=== PATIENT | female | born 1950 | race Caucasian/White ===

== ENCOUNTER → 2016-08-22 | Outpatient (REF) | payer MEDICARE | LOC: M SFHCWAGY 15:20 | PROVIDERS: ATTEND Nurse Practitioner Women's Health | DX: Z12.4 Encounter for screening for malignant neoplasm of cervix (principal) ==

== ENCOUNTER → 2016-08-22 | Outpatient (CLI) | payer MEDICARE ==
--- NOTE | 2016-08-22 16:15 | REPMRS ---
Patient History The patient states she had a clinical breast exam in 08/2016. Patient is postmenopausal. Family history of ovarian cancer in sister at age 71, breast cancer in paternal aunt at age 45, colorectal cancer in brother at age 71, and breast cancer in niece under age 50. Benign stereotatic loc for ea lesion of the left breast, June 14, 2015. Digital Woman Screen Mammo: August 22, 2016 - Exam #: [id number] Bilateral CC and MLO view(s) were taken. Technologist: Nancy Gallegos Technologist Prior study comparison: April 21, 2015, digital mammo diagnostic bilateral, performed at [facility]. December 10, 2013, digital woman screen mammo performed at [facility]. FINDINGS: There are scattered fibroglandular densities. There has been no change in the appearance of the mammogram from the prior studies. There is a needle biopsy marker clip in the left breast. There is a mild amount of scattered fibroglandular density which is fairly symmetric. There is no interval development of dominant mass, architectural distortion, or clustered microcalcification suggestive of malignancy. ASSESSMENT: BI-RADS/ACR category 2 mammogram. Benign finding(s). Recommendation Routine screening mammogram in 1 year (for women over age 40). This mammogram was interpreted with the aid of an FDA-approved computer-aided dectection system. Electronically Signed By: Joel Alcantara MD 08/22/16 [id number]
== END ==
LOC: M WHC 15:01
PROVIDERS: ATTEND Nurse Practitioner Women's Health
DX: Z12.31 Encounter for screening mammogram for malignant neoplasm of breast (principal); Z78.0 Asymptomatic menopausal state; Z12.12 Encounter for screening for malignant neoplasm of rectum; Z80.41 Family history of malignant neoplasm of ovary; Z92.89 Personal history of other medical treatment
CPT/HCPCS: 82270; G0101; G0123; G0202

== ENCOUNTER → 2016-11-27 | Outpatient (REF) | payer MEDICARE | LOC: M SFHCCLAY 12:59 | PROVIDERS: ATTEND Nurse Practitioner | DX: E03.9 Hypothyroidism, unspecified (principal) ==

== ENCOUNTER 2017-04-20 06:56 | Day surgery (SDC) | payer MEDICARE ==
[~2017-04-20] VITALS: Ht 157.5 cm; Wt 59.4 kg
[~2017-04-20 06:56] MED LIST: CALC600T57 PO; GLUC500C5 PO; LEVO75TA4 PO; MULT1CHW39 PO; VITA200C10 PO
[2017-04-20] MEDS ORDERED: NS 1,000 ML IV ONE (07:00)
--- NOTE | 2017-04-20 08:00 | ROOR ---
Patient Name: Cynthia Schwarz Procedure Date: 04/20/2017 7:39 AM Date of : 1950 Age: 67 Room: [facility] Gender: Female Note Status: Finalized Procedure: Colonoscopy Indications: High risk colon cancer surveillance: Personal history of colonic polyps, Family history of colon cancer in a first-degree relative Providers: Jeremiah LANDIS MD Referring MD: Eusebio Donahue MD Requesting Provider: Medicines: Monitored Anesthesia Care Complications: No immediate complications. Procedure: Pre-Anesthesia Assessment: - The heart rate, respiratory rate, oxygen saturations, blood pressure, adequacy of pulmonary ventilation, and response to care were monitored throughout the procedure. The Colonoscope was introduced through the anus and advanced to the cecum, identified by appendiceal orifice and ileocecal valve. The colonoscopy was performed without difficulty. The patient tolerated the procedure well. The quality of the bowel preparation was good. Findings: The perianal and digital rectal examinations were normal. Multiple medium-mouthed diverticula were found in the sigmoid colon and descending colon. There was narrowing of the colon in association with the diverticular opening. There was evidence of diverticular spasm. Three sessile polyps were found in the sigmoid colon and ascending colon. The polyps were diminutive in size. These polyps were removed with a cold snare. Resection and retrieval were complete. The exam was otherwise without abnormality. Impression: - Moderate diverticulosis in the sigmoid colon and in the descending colon. - Three diminutive polyps in the sigmoid colon and in the ascending colon, removed with a cold snare. Resected and retrieved. - The examination was otherwise normal. Recommendation: - Telephone endoscopist for pathology results in 2 weeks. - If the pathology report reveals adenomatous tissue, then repeat the colonoscopy for surveillance in 3 years. - If the pathology report indicates hyperplastic polyp, then repeat colonoscopy for surveillance in 5 years. Jeremiah Landis MD Jeremiah LANDIS MD 04/20/2017 8:00:40 AM This report has been signed electronically. Number of Addenda: 0 Note Initiated On: 04/20/2017 7:39 AM Estimated Blood Loss: Estimated blood loss: none.
[2017-04-20] MEDS ORDERED: PROPOFOL 200 MG/20 ML VIAL As Ordered ONE (08:09)
[2017-04-20 08:25] VITALS: BP 131/72
== END 2017-04-20 08:28 | disposition home or self-care (01) ==
LOC: M OPP 06:56
PROVIDERS: ATTEND Internal Medicine Gastroenterology
DX: Z12.11 Encounter for screening for malignant neoplasm of colon (principal); Z86.010 Personal history of colon polyps; Z80.0 Family history of malignant neoplasm of digestive organs; D12.5 Benign neoplasm of sigmoid colon; D12.2 Benign neoplasm of ascending colon; K57.30 Diverticulosis of large intestine without perforation or abscess without bleeding; E03.9 Hypothyroidism, unspecified; M19.90 Unspecified osteoarthritis, unspecified site; Z88.8 Allergy status to other drugs, medicaments and biological substances; Z91.010 Allergy to peanuts; Z88.0 Allergy status to penicillin; Z79.899 Other long term (current) drug therapy; Z80.3 Family history of malignant neoplasm of breast; Z80.1 Family history of malignant neoplasm of trachea, bronchus and lung; Z80.41 Family history of malignant neoplasm of ovary; Z88.2 Allergy status to sulfonamides

== ENCOUNTER → 2017-08-23 | Outpatient (CLI) | payer MEDICARE | LOC: M WHC 14:45 | DX: Z12.31 Encounter for screening mammogram for malignant neoplasm of breast (principal); Z01.419 Encounter for gynecological examination (general) (routine) without abnormal findings (principal) | CPT/HCPCS: 77067; G0123 ==

== ENCOUNTER → 2017-08-23 | Outpatient (REF) | payer MEDICARE | LOC: M SFHCWAGY 15:30 | DX: Z12.4 Encounter for screening for malignant neoplasm of cervix (principal); N95.2 Postmenopausal atrophic vaginitis | CPT/HCPCS: G0123 ==

== ENCOUNTER → 2017-09-24 | Outpatient (REF) | payer MEDICARE | LOC: M SFHCWAGY 09-25 11:09 | DX: N89.8 Other specified noninflammatory disorders of vagina (principal) | CPT/HCPCS: 87070 ==

== ENCOUNTER → 2018-08-27 | Outpatient (CLI) | payer MEDICARE ==
[~2018-08-27] MED LIST changes: -MULT1CHW39 PO; +MULT200T7 PO
--- NOTE | 2018-08-27 15:29 | REPMRS ---
Patient History The patient states she had a clinical breast exam in 08/2018. Patient is postmenopausal. Family history of colorectal cancer at age 71 in brother, breast cancer at age 45 in paternal aunt, breast cancer under age 50 in niece, ovarian cancer at age 71 in sister, breast cancer at age 70 in paternal aunt. Benign stereotatic loc for ea lesion of the left breast, June 14, 2015. Taking estrogen for 1 month. 3D TOMOSYNTHESIS WAS PERFORMED. Digital Woman Screen Mammo: August 27, 2018 - Exam #: [id number] Bilateral CC and MLO view(s) were taken. Technologist: Mikayla Hall, Technologist Prior study comparison: August 23, 2017, digital woman screen mammo performed at [facility]. August 22, 2016, digital woman screen mammo performed at [facility]. FINDINGS: The breast tissue is heterogeneously dense. This may lower the sensitivity of mammography. There has been no change in the appearance of the mammogram from the prior studies. There is a moderate amount of residual fibroglandular tissue which is fairly symmetric. There is no interval development of dominant mass, areas of architectural distortion, or clustered microcalcification typical of malignancy. Assessment: BI-RADS/ACR category 1 mammogram. Negative Mammogram. Recommendation Routine screening mammogram in 1 year (for women over age 40). This mammogram was interpreted with the aid of an FDA-approved computer-aided dectection system. Electronically Signed By: Isrrael Medrano MD 08/27/18 [id number]
== END ==
LOC: M WHC 13:17
PROVIDERS: ATTEND Nurse Practitioner Women's Health
DX: Z01.419 Encounter for gynecological examination (general) (routine) without abnormal findings (principal); Z12.31 Encounter for screening mammogram for malignant neoplasm of breast; Z78.0 Asymptomatic menopausal state; Z92.23 Personal history of estrogen therapy; Z86.018 Personal history of other benign neoplasm; Z80.41 Family history of malignant neoplasm of ovary
CPT/HCPCS: 77063; 77067; G0101

== ENCOUNTER → 2018-10-28 | Outpatient (CLI) | payer MEDICARE ==
--- NOTE | 2018-10-29 10:14 | DEXA ---
AP SPINE L1 - L4 0.953 -2.0 -0.3 LT FEMUR TOTAL 0.842 -1.3 0.2 LT NECK 0.750 -2.1 -0.4 RT FEMUR TOTAL 0.840 -1.3 0.2 RT NECK 0.738 -2.2 -0.4 TOTAL BODY TOTAL OTHER COMMENTS: There is low bone density of the spine and hips. The density of the spine has decreased 2.5% since 12/18/2013. The density of the left hip has decreased 1.6% since 12/18/2013. The density of the right hip has decreased 0.2% since 12/18/2013. FOLLOW-UP: Recommendation for the next bone density exam: 2 years. NENITA
== END ==
LOC: M WHC 09:44
PROVIDERS: ATTEND Nurse Practitioner Family
DX: M81.0 Age-related osteoporosis without current pathological fracture (principal)
CPT/HCPCS: 77080; G0463

== ENCOUNTER → 2019-10-21 | Outpatient (CLI) | payer MEDICARE ==
--- NOTE | 2019-10-21 16:19 | REPMRS ---
Patient History The patient states she had a clinical breast exam in October 2019. Family history of colorectal cancer at age 71 in brother, breast cancer at age 45 in paternal aunt, breast cancer under age 50 in niece, ovarian cancer at age 71 in sister, breast cancer at age 70 in paternal aunt. Benign stereotatic loc for ea lesion of the left breast, June 14, 2015. Taking estrogen for 1 month. Digital Woman Screen Mammo: October 21, 2019 - Exam #: [id number] Bilateral CC and MLO view(s) were taken. Technologist: Debbie Carnes, Technologist Prior study comparison: August 27, 2018, bilateral digital woman screen mammo performed at [facility]. August 23, 2017, digital woman screen mammo performed at [facility]. August 22, 2016, digital woman screen mammo performed at [facility]. FINDINGS: There are scattered fibroglandular densities. The Volpara volumetric breast density category is: B. There is a metallic marker clip again noted in the left breast. There is a moderate amount of residual fibroglandular tissue which is fairly symmetric. There is no interval development of dominant mass, architectural distortion, or grouped microcalcification typical of malignancy. There has been no change in the appearance of the mammogram from the prior studies. 3-D tomosynthesis shows no additional findings. Assessment: BI-RADS/ACR category 2 mammogram. Benign Findings. Recommendation Routine screening mammogram of both breasts in 1 year (for women over age 40). This patient's Lifetime Breast Cancer RIsk is estimated at 5.3 %. This mammogram was interpreted with the aid of an FDA-approved computer-aided dectection system. Electronically Signed By: Joel Alcantara MD 10/21/19 0426
== END ==
LOC: M WHC 14:03
PROVIDERS: ATTEND Nurse Practitioner Women's Health
DX: Z01.419 Encounter for gynecological examination (general) (routine) without abnormal findings (principal); Z12.31 Encounter for screening mammogram for malignant neoplasm of breast; Z80.0 Family history of malignant neoplasm of digestive organs; Z80.41 Family history of malignant neoplasm of ovary; Z86.018 Personal history of other benign neoplasm; Z92.23 Personal history of estrogen therapy
CPT/HCPCS: 77063; 77067; G0101; G0123

== ENCOUNTER → 2019-10-21 | Outpatient (REF) | payer MEDICARE | LOC: M SFHCWAGY 08:21 | PROVIDERS: ATTEND Nurse Practitioner Women's Health | DX: Z12.4 Encounter for screening for malignant neoplasm of cervix (principal); R87.618 Other abnormal cytological findings on specimens from cervix uteri ==

== ENCOUNTER → 2020-07-01 | Outpatient (REF) | payer MEDICARE | LOC: M SFHCWAGY 13:28 | PROVIDERS: ATTEND Nurse Practitioner Family | DX: N76.0 Acute vaginitis (principal) ==

== ENCOUNTER → 2020-07-04 | Outpatient (CLI) | payer MEDICARE | LOC: M LABSMTC 08:31 | PROVIDERS: ATTEND Anesthesiology | DX: Z01.812 Encounter for preprocedural laboratory examination (principal); Z20.822 Contact with and (suspected) exposure to COVID-19 ==

== ENCOUNTER 2020-07-09 08:39 | Day surgery (SDC) | payer MEDICARE ==
[~2020-07-09] VITALS: Ht 157.5 cm; Wt 61.2 kg
[~2020-07-09 08:39] MED LIST changes: +NS 1,000 ML IV ONE
[2020-07-09] MEDS ORDERED: propofoL 200 MG/20 ML VIAL As Ordered ONE (09:49)
[2020-07-09] MEDS ORDERED: LIDOCAINE 2% 100MG/5ML SDV (FOR ANES.) As Ordered ONE (09:49)
--- NOTE | 2020-07-09 10:07 | ROOR ---
Patient Name: Cynthia Schwarz Procedure Date: 07/09/2020 9:40 AM Date of : 1950 Age: 70 Room: [facility] Gender: Female Note Status: Finalized Procedure: Colonoscopy Indications: High risk colon cancer surveillance: Personal history of colonic polyps, Family history of colon cancer Providers: Jeremiah MCALLISTER MD Referring MD: Artemio Nash Meredith LIZOTTE, NP Requesting Provider: Medicines: Monitored Anesthesia Care Complications: No immediate complications. Procedure: Pre-Anesthesia Assessment: - The heart rate, respiratory rate, oxygen saturations, blood pressure, adequacy of pulmonary ventilation, and response to care were monitored throughout the procedure. The was introduced through the anus and advanced to the cecum, identified by appendiceal orifice and ileocecal valve. The colonoscopy was performed without difficulty. The patient tolerated the procedure well. The quality of the bowel preparation was good. Findings: The perianal and digital rectal examinations were normal. A 3 mm polyp was found in the ascending colon. The polyp was sessile. The polyp was removed with a cold snare. Resection and retrieval were complete. Multiple small and large-mouthed diverticula were found in the sigmoid colon, descending colon and transverse colon. The exam was otherwise without abnormality on direct and retroflexion views. Impression: - One 3 mm polyp in the ascending colon, removed with a cold snare. Resected and retrieved. - Diverticulosis in the sigmoid colon, in the descending colon and in the transverse colon. - Small internal hemorrhoids. - The colon examination was otherwise normal on direct and retroflexion views. Recommendation: - Repeat colonoscopy in 5 years for surveillance. Procedure Code(s): --- Professional --- 57580, Colonoscopy, flexible; with removal of tumor(s), polyp(s), or other lesion(s) by snare technique Diagnosis Code(s): --- Professional --- K57.30, Diverticulosis of large intestine without perforation or abscess without bleeding K63.5, Polyp of colon Z86.010, Personal history of colonic polyps CPT copyright 2019 [employer]. All rights reserved. The codes documented in this report are preliminary and upon risk compliance analyst review may be revised to meet current compliance requirements. Jeremiah Mcallister MD Jeremiah MCALLISTER MD 07/09/2020 10:06:44 AM Electronically signed by Jeremiah MCALLISTER MD Number of Addenda: 0 Note Initiated On: 07/09/2020 9:40 AM Estimated Blood Loss: Estimated blood loss: none.
[2020-07-09 10:25] VITALS: BP 128/68
== END 2020-07-09 10:44 | disposition home or self-care (01) ==
LOC: M OPP 08:39
PROVIDERS: ATTEND Internal Medicine Gastroenterology
DX: Z12.11 Encounter for screening for malignant neoplasm of colon (principal); Z86.010 Personal history of colon polyps; Z80.0 Family history of malignant neoplasm of digestive organs; D12.2 Benign neoplasm of ascending colon; K57.30 Diverticulosis of large intestine without perforation or abscess without bleeding; Z79.899 Other long term (current) drug therapy; Z88.0 Allergy status to penicillin; Z88.2 Allergy status to sulfonamides; Z88.6 Allergy status to analgesic agent; Z88.8 Allergy status to other drugs, medicaments and biological substances

== ENCOUNTER → 2020-11-10 | Outpatient (REF) | payer MEDICARE ==
[~2020-11-10] MED LIST changes: -NS 1,000 ML IV ONE
== END ==
LOC: M SFHCWAGY 17:23
PROVIDERS: ATTEND Nurse Practitioner Women's Health
DX: Z01.419 Encounter for gynecological examination (general) (routine) without abnormal findings (principal); R87.610 Atypical squamous cells of undetermined significance on cytologic smear of cervix (ASC-US)

== ENCOUNTER → 2020-11-10 | Outpatient (CLI) | payer MEDICARE ==
--- NOTE | 2020-11-10 15:56 | REPMRS ---
Patient History The patient states she had a clinical breast exam in November 2020. Patient is postmenopausal. Family history of colorectal cancer at age 71 in brother, breast cancer at age 45 in paternal aunt, breast cancer under age 50 in niece, ovarian cancer at age 71 in sister, breast cancer at age 70 in paternal aunt. Benign stereotatic loc for ea lesion of the left breast, June 14, 2015. Taking estrogen for 1 year. No breast complaints today Patient signed the MRS sheet 1st covid vaccine 2020-left arm-Moderna 2nd covid vaccine 2020-left arm Priors on PACS Patient Identification Verified Digital Woman Screen Mammo: November 10, 2020 - Exam #: [id number] Bilateral CC and MLO view(s) were taken. Technologist: Debbie Carnes Technologist Prior study comparison: October 21, 2019, bilateral digital woman screen mammo performed at [facility]. August 27, 2018, bilateral digital woman screen mammo performed at [facility]. August 23, 2017, digital woman screen mammo performed at [facility]. FINDINGS: There are scattered fibroglandular densities. The Volpara volumetric breast density category is:B. There is a needle biopsy marker clip noted in the left breast. There has been no change in the appearance of the mammogram from the prior studies. There is a mild amount of scattered fibroglandular density which is fairly symmetric. There is no interval development of dominant mass, architectural distortion, or grouped microcalcification suggestive of malignancy. 3-D tomosynthesis shows no additional findings. Assessment: BI-RADS/ACR category 2 mammogram. Benign Findings. Recommendation Routine screening mammogram of both breasts in 1 year (for women over age 40). This patient's [facility] Lifetime Breast Cancer Risk is estimated at 4.9 %. This mammogram was interpreted with the aid of an FDA-approved computer-aided dectection system. Electronically Signed By: Joel Alcantara MD 11/10/20 [id number]
== END ==
LOC: M WHC 14:19
PROVIDERS: ATTEND Nurse Practitioner Women's Health
DX: Z01.419 Encounter for gynecological examination (general) (routine) without abnormal findings (principal); Z12.31 Encounter for screening mammogram for malignant neoplasm of breast; Z78.0 Asymptomatic menopausal state; Z80.0 Family history of malignant neoplasm of digestive organs; Z80.3 Family history of malignant neoplasm of breast; Z80.41 Family history of malignant neoplasm of ovary; Z86.018 Personal history of other benign neoplasm; Z92.23 Personal history of estrogen therapy; R87.610 Atypical squamous cells of undetermined significance on cytologic smear of cervix (ASC-US)
CPT/HCPCS: 77063; 77067; 87624; G0101; G0123

== ENCOUNTER → 2022-04-10 | Outpatient (CLI) | payer MEDICARE | LOC: M WHC 09:33 | PROVIDERS: ATTEND Nurse Practitioner Family | DX: Z12.31 Encounter for screening mammogram for malignant neoplasm of breast (principal) ==

== ENCOUNTER → 2022-04-10 | Outpatient (REF) | payer MEDICARE | LOC: M PLALAB 15:01 | PROVIDERS: ATTEND Nurse Practitioner Family | DX: Z12.4 Encounter for screening for malignant neoplasm of cervix (principal) | CPT/HCPCS: 87624; G0123 ==

== ENCOUNTER → 2022-11-16 | Outpatient (REF) | payer MEDICARE ==
[~2022-11-16] MED LIST changes: +ALEN10TA5 PO; +AMMO12CR7 TOP; +APPL300T4 PO; +BLAC540C3 PO; +CALC1TAB26 PO; +CVS-161 PO; +CYAN500T14 PO; +GALZ50CA PO; +GLUCTAB7 PO; +LEVO100T5 PO; +MAGN400T2 PO; +OMEGCAP4 PO; +SIMV10TA21 PO; +TUME1CAP PO
== END ==
LOC: M LAB REF 18:07
PROVIDERS: ATTEND Internal Medicine Endocrinology, Diabetes & Metabolism
DX: E04.1 Nontoxic single thyroid nodule (principal)

== ENCOUNTER → 2023-07-05 | Outpatient (CLI) | payer MEDICARE | LOC: M WHC 15:04 | PROVIDERS: ATTEND Nurse Practitioner Family | DX: Z12.31 Encounter for screening mammogram for malignant neoplasm of breast (principal) ==

== ENCOUNTER → 2025-02-03 | Outpatient (REF) | payer MEDICARE ==
[~2025-02-03] MED LIST changes: +AMMO12CR4 TOP; -AMMO12CR7 TOP; -GALZ50CA PO; -MULT200T7 PO; +MULT200T9 PO; +ZINC50CA4 PO
[2025-02-05 16:14] LABS: HPV APTIMA Not Detected (Not Detected)
== END ==
LOC: M SFHCWAGY 10:24
PROVIDERS: ATTEND Physician Assistant
DX: Z12.4 Encounter for screening for malignant neoplasm of cervix (principal)
CPT/HCPCS: 87624; G0123

== ENCOUNTER → 2025-02-03 | Outpatient (CLI) | payer MEDICARE | LOC: M WHC 09:28 | PROVIDERS: ATTEND Physician Assistant | DX: Z12.31 Encounter for screening mammogram for malignant neoplasm of breast (principal); R92.323 Mammographic fibroglandular density, bilateral breasts ==